=== PATIENT | female | born 1955 | race Caucasian/White ===

== ENCOUNTER 2018-01-18 08:12 | Outpatient (CLI) | payer BC | END 2018-01-18 08:13 | disposition home or self-care (01) | LOC: BICMAMMO 08:12 | PROVIDERS: ATTEND Internal Medicine | DX: Z12.31 Encounter for screening mammogram for malignant neoplasm of breast (principal) | CPT/HCPCS: 77063; 77067 ==

== ENCOUNTER 2019-03-08 15:14 | Outpatient (CLI) | payer BC ==
--- NOTE | 2019-03-08 16:05 | MMO ---
Bilateral MAMMO Bilat Screen [facility]. CLINICAL HISTORY: Patient is 63 years old and is seen for screening. The patient has no family history of breast cancer. The patient has no personal history of cancer. The patient has a history of right Stereotatic Biopsy in August, - benign - fibrocystic, right Ultrasound Guided Core Biopsy in January, and right Excisional Biopsy at age 32 - benign. VIEWS: The views performed were: bilateral craniocaudal with tomosynthesis and bilateral mediolateral oblique with tomosynthesis. FILMS COMPARED: The present examination has been compared to prior imaging studies performed at [facility] on 11/27/2014, 12/17/2015, 01/08/2017 and 01/18/2018. This study has been interpreted with the assistance of computer-aided detection. MAMMOGRAM FINDINGS: There are stable benign appearing calcifications seen in both breasts. A biopsy clip is seen in the right breast. There are no suspicious masses, suspicious calcifications, or new areas of architectural distortion. IMPRESSION: THERE IS NO MAMMOGRAPHIC EVIDENCE OF MALIGNANCY. A ROUTINE FOLLOW-UP MAMMOGRAM IN 1 YEAR IS RECOMMENDED. THE RESULTS OF THIS EXAM WERE SENT TO THE PATIENT. ACR BI-RADS Category 2 - Benign finding MAMMOGRAPHY NOTE: 1. A negative mammogram report should not delay a biopsy if a dominant of clinically suspicious mass is present. 2. Approximately 10% to 15% of breast cancers are not detected by mammography. 3. Adenosis and dense breasts may obscure an underlying neoplasm. Reported by: LD DÍAZ MD Electonically Signed: [id number]
--- NOTE | 2019-03-08 16:17 | BD ---
Exam: DEXA Bone Density 03/08/19 HISTORY: Screening for osteoporosis. COMPARISON: 01/08/17. Lumbar Spine: BMD (g/cm2) T-SCORE L1 0.879 -1.0 L2 0.930 -0.9 L3 1.088 0.0 L4 1.039 -0.2 L1-L4 0.989 -0.5 Within normal limits with no increased risk for fracture. There is some associated sclerosis of multi ple vertebral bodies which could potentially falsely elevate bone mineral density. Bone mineral density is slightly decreased when compared to 01/08/17. Left Femoral Neck: 0.571 -2.5 Total Femur: 0.817 -1.0 Evidence for osteoporosis with high risk for fracture. Bone mineral density is slightly improved when compared to the prior 01/08/17 study. POS: ANNY
== END 2019-03-08 15:15 | disposition home or self-care (01) ==
LOC: BICMAMMO 15:14
PROVIDERS: ATTEND Internal Medicine
DX: Z12.31 Encounter for screening mammogram for malignant neoplasm of breast (principal); M81.0 Age-related osteoporosis without current pathological fracture; M85.88 Other specified disorders of bone density and structure, other site; Z91.89 Other specified personal risk factors, not elsewhere classified
CPT/HCPCS: 77063; 77067; 77080

== ENCOUNTER 2020-03-22 08:11 | Outpatient (CLI) | payer BC ==
--- NOTE | 2020-03-22 08:53 | MMO ---
Bilateral MAMMO Bilat Screen [facility]. CLINICAL HISTORY: Patient is 65 years old and is seen for screening. The patient has no family history of breast cancer. The patient has no personal history of cancer. The patient has a history of right Stereotatic Biopsy in August, - benign - fibrocystic, right Ultrasound Guided Core Biopsy in January, and right Excisional Biopsy at age 32 - benign. VIEWS: The views performed were: bilateral craniocaudal with tomosynthesis; bilateral mediolateral oblique with tomosynthesis; and bilateral exaggerated craniocaudal. FILMS COMPARED: The present examination has been compared to prior imaging studies performed at [facility] on 12/17/2015, 01/08/2017, 01/18/2018 and 03/08/2019. This study has been interpreted with the assistance of computer-aided detection. MAMMOGRAM FINDINGS: The breasts are heterogeneously dense, which could obscure a lesion on mammography. There are stable benign appearing calcifications seen in both breasts. A biopsy clip is seen in the right breast. There are no suspicious masses, suspicious calcifications, or new areas of architectural distortion. IMPRESSION: THERE IS NO MAMMOGRAPHIC EVIDENCE OF MALIGNANCY. A ROUTINE FOLLOW-UP MAMMOGRAM IN 1 YEAR IS RECOMMENDED. THE RESULTS OF THIS EXAM WERE SENT TO THE PATIENT. ACR BI-RADS Category 2 - Benign finding MAMMOGRAPHY NOTE: 1. A negative mammogram report should not delay a biopsy if a dominant of clinically suspicious mass is present. 2. Approximately 10% to 15% of breast cancers are not detected by mammography. 3. Adenosis and dense breasts may obscure an underlying neoplasm. Reported by: LD DÍAZ MD Electonically Signed: [id number]
== END 2020-03-22 08:12 | disposition home or self-care (01) ==
LOC: BICMAMMO 08:11
PROVIDERS: ATTEND Internal Medicine
DX: Z12.31 Encounter for screening mammogram for malignant neoplasm of breast (principal); Z91.89 Other specified personal risk factors, not elsewhere classified
CPT/HCPCS: 77063; 77067

== ENCOUNTER 2021-03-24 13:20 | Outpatient (CLI) | payer MEDICARE, BC | END 2021-03-24 13:21 | disposition home or self-care (01) | LOC: BICMAMMO 13:20 | PROVIDERS: ATTEND Internal Medicine | DX: Z12.31 Encounter for screening mammogram for malignant neoplasm of breast (principal); Z91.89 Other specified personal risk factors, not elsewhere classified | CPT/HCPCS: 77063; 77067 ==

== ENCOUNTER 2022-03-25 07:29 | Outpatient (CLI) | payer MEDICARE, BC | END 2022-03-25 07:30 | disposition home or self-care (01) | LOC: BICULT 07:29 | PROVIDERS: ATTEND Internal Medicine | DX: Z12.31 Encounter for screening mammogram for malignant neoplasm of breast (principal); Z13.6 Encounter for screening for cardiovascular disorders; M81.0 Age-related osteoporosis without current pathological fracture; Z91.89 Other specified personal risk factors, not elsewhere classified | CPT/HCPCS: 76775; 77063; 77067; 77080 ==

== ENCOUNTER 2024-05-30 14:47 | Outpatient (CLI) | payer MEDICARE | END 2024-05-30 14:48 | disposition home or self-care (01) | LOC: BICMAMMO 14:47 | PROVIDERS: ATTEND Internal Medicine | DX: Z12.31 Encounter for screening mammogram for malignant neoplasm of breast (principal); M81.0 Age-related osteoporosis without current pathological fracture; Z91.89 Other specified personal risk factors, not elsewhere classified | CPT/HCPCS: 77063; 77067; 77080 ==